=== PATIENT | female | born 1990 | race Caucasian/White ===

== ENCOUNTER 2020-07-26 04:33 | Emergency (ER) | payer MEDICAID ==
[~2020-07-26] VITALS: Ht 160 cm; Wt 50.0 kg
[2020-07-26] MEDS ORDERED: morphine 4 MG/ML inj SYRINge IV ONE (04:50)
[2020-07-26] MEDS ORDERED: normal saline 1000ml 1,000 ML IV ONE (04:55)
[2020-07-26 05:05] LABS: BASOPHILS # (AUTO) 0.1 X10'3 (0-0.2); BASOPHILS % (AUTO) 0.8 % (0-1); EOSINOPHILS # (AUTO) 0.3 X10'3 (0-0.9); EOSINOPHILS % (AUTO) 3.7 % (0-6); HEMATOCRIT 39.8 % (35.0-45.0); LYMPHOCYTES # (AUTO) 3.8 X10'3 (1.1-4.8); LYMPHOCYTES % (AUTO) 50.2 % (21-51); MEAN CORPUSCULAR HEMOGLOBIN 26.2 PG (27.0-31.0); MEAN CORPUSCULAR HGB CONC 32.7 g/dL (33.0-36.5); MEAN CORPUSCULAR VOLUME 80.1 FL (78-98); MEAN PLATELET VOLUME 8.4 FL (7.4-10.4); MONOCYTES # (AUTO) 0.5 X10'3 (0-0.9); MONOCYTES % (AUTO) 6.1 % (2-12); NEUTROPHILS % (AUTO) 39.2 % (42-75); PLATELET COUNT 180 X10'3 (140-440); RED BLOOD COUNT 4.97 X10'6 (4.20-5.60); RED CELL DISTRIBUTION WIDTH 13.4 % (11.5-14.5); WHITE BLOOD COUNT 7.5 X10'3 (4.5-11.0)
[2020-07-26 05:30] LABS: ALANINE AMINOTRANSFERASE 18 U/L (12-78); ALBUMIN 3.9 G/DL (3.4-5.0); ALBUMIN/GLOBULIN RATIO 1.3 (1.1-1.5); ALKALINE PHOSPHATASE 49 IU/L (46-116); ANION GAP 12 (8-16); ASPARTATE AMINO TRANSFERASE 10 U/L (10-37); BILIRUBIN,TOTAL 0.5 MG/DL (0.1-1.0); BLOOD UREA NITROGEN 18 MG/DL (7-18); BUN/CREATININE RATIO 22.8 (6.6-38.0); CALCIUM 8.9 MG/DL (8.5-10.1); CHLORIDE 100 MMOL/L (99-107); CREATININE 0.79 MG/DL (0.40-0.90); GLUCOSE 115 MG/DL (70-104); POTASSIUM 3.5 MMOL/L (3.5-5.1); SODIUM 138 MMOL/L (135-145); TOTAL CARBON DIOXIDE 25.7 MMOL/L (24-32); TOTAL PROTEIN 6.9 G/DL (6.4-8.2); eGFR 87 ML/MIN
--- NOTE | 2020-07-26 06:00 | NUR ---
US at bedside
[2020-07-26 06:23] LABS: CLARITY,URINE CLEAR (Clear); COLOR,URINE YELLOW (Yellow); GLUCOSE, URINE NEGATIVE (Neg); KETONES,URINE NEGATIVE (Neg); LEUKOCYTE ESTERASE ,URINE NEGATIVE (Neg); NITRITES, URINE NEGATIVE (Neg); OCCULT BLOOD,URINE NEGATIVE (Neg); PH,URINE 6.5 (4.8-8.0); PROTEIN,URINE NEGATIVE (Neg); UROBILINOGEN,URINE 0.2 E.U/dL (0.2-1.0)
[2020-07-26 06:24] LABS: UA COLLECTION TYPE CLN CATCH MIDSTREAM
[2020-07-26 06:29] VITALS: BP 112/64
[2020-07-26 06:31] LABS: URINE HCG NEGATIVE (NEG)
== END 2020-07-26 07:01 | disposition home or self-care (01) ==
LOC: ER 04:33
DX: R10.32 Left lower quadrant pain (principal); R11.0 Nausea; R42 Dizziness and giddiness
CPT/HCPCS: 36415; 76856; 80053; 81003; 81025; 85025; 93976; 96361; 96374; 99284; J2270; J7030

== ENCOUNTER 2020-08-13 21:25 | Emergency (ER) | payer MEDICAID ==
[~2020-08-13] VITALS: Ht 160 cm; Wt 48.0 kg
--- NOTE | 2020-08-13 21:40 | NUR ---
Patient brought back from triage to bed 23. Patient care assumed by this nurse.
--- NOTE | 2020-08-13 23:03 | NUR ---
This patient is awake and well oriented. Thought is linear. Patient complains of many recent stressors. Thoughts of S/I, patient had a knife out at home, thoughts of cutting wrist with it. A friend interrupted her. The friend drove patient to the ED. Patient states much stress over past three days. She had taken some xanax at home to self medicate. Patient states relationship problems with her boyfriend, the patient then overdosed on heroin, the patient gave him narcan with success. Other stressors are job loss. Patient states she has had fleeting thoughts of S/I but didn't really want to .
[2020-08-13] MEDS ORDERED: NO HOME MEDS (23:11)
--- NOTE | 2020-08-13 23:31 | NUR ---
Patient sleeping quietly, awaiting MD. PMH: Anxiety, PTSD. In direct view from nurses station.
--- NOTE | 2020-08-14 00:28 | NUR ---
Patilent sleeping quietly, in view from nurses station. W/D, good color.
[2020-08-14 01:34] LABS: URINE AMPHETAMINE SCREEN NEGATIVE (Neg); URINE BARBITUATE SCREEN NEGATIVE (Neg); URINE BENZODIAZEPINES SCREEN NEGATIVE (Neg); URINE CANNABINOID SCREEN POSITIVE (Neg); URINE COCAINE SCREEN NEGATIVE (Neg); URINE METHADONE SCREEN NEGATIVE (Neg); URINE OPIATE SCREEN NEGATIVE (Neg); URINE PHENCYCLIDINE SCREEN NEGATIVE (Neg)
[2020-08-14 01:39] LABS: ALANINE AMINOTRANSFERASE 21 U/L (12-78); ALBUMIN 4.3 G/DL (3.4-5.0); ALBUMIN/GLOBULIN RATIO 1.3 (1.1-1.5); ALKALINE PHOSPHATASE 50 IU/L (46-116); ANION GAP 9 (8-16); ASPARTATE AMINO TRANSFERASE 14 U/L (10-37); BILIRUBIN,TOTAL 0.4 MG/DL (0.1-1.0); BLOOD UREA NITROGEN 10 MG/DL (7-18); CHLORIDE 108 MMOL/L (99-107); CREATININE 0.77 MG/DL (0.40-0.90); ETHANOL < 0.010 GM/DL (0.0-0.010); GLUCOSE 99 MG/DL (70-104); POTASSIUM 3.6 MMOL/L (3.5-5.1); SODIUM 144 MMOL/L (135-145); TOTAL CARBON DIOXIDE 27.3 MMOL/L (24-32); TOTAL PROTEIN 7.6 G/DL (6.4-8.2); eGFR 90 ML/MIN
[2020-08-14 02:00] LABS: URINE HCG NEGATIVE (NEG)
[2020-08-14 02:54] LABS: BASOPHILS % (AUTO) 0.6 % (0-1); EOSINOPHILS # (AUTO) 0.2 X10'3 (0-0.9); EOSINOPHILS % (AUTO) 2.4 % (0-6); HEMATOCRIT 39.3 % (35.0-45.0); HEMOGLOBIN 13.1 g/dl (12.0-16.0); LYMPHOCYTES # (AUTO) 2.7 X10'3 (1.1-4.8); LYMPHOCYTES % (AUTO) 42.6 % (21-51); MEAN CORPUSCULAR HEMOGLOBIN 26.2 PG (27.0-31.0); MEAN CORPUSCULAR HGB CONC 33.3 g/dL (33.0-36.5); MEAN CORPUSCULAR VOLUME 78.9 FL (78-98); MEAN PLATELET VOLUME 8.5 FL (7.4-10.4); MONOCYTES # (AUTO) 0.3 X10'3 (0-0.9); MONOCYTES % (AUTO) 5.2 % (2-12); NEUTROPHILS # (AUTO) 3.1 X10'3 (1.8-7.7); NEUTROPHILS % (AUTO) 49.2 % (42-75); PLATELET COUNT 206 X10'3 (140-440); RED BLOOD COUNT 4.99 X10'6 (4.20-5.60); WHITE BLOOD COUNT 6.3 X10'3 (4.5-11.0)
--- NOTE | 2020-08-14 03:44 | NUR ---
Patient sleeps quietly in a mid fowlers position. No distress. W/D, good color.
--- NOTE | 2020-08-14 04:57 | NUR ---
Patient sleeping low fowlers position on her left side.
--- NOTE | 2020-08-14 06:51 | NUR ---
Patient moved to bed 8 in main ER. Report to day RN. Patient is well oriented and cooperative. No distress.
--- NOTE | 2020-08-14 06:58 | NUR ---
Patient received on a hospital bed awake,pleasant and cooperative.We will monitor.
--- NOTE | 2020-08-14 07:09 | NUR ---
PACKET SENT TO [facility]
--- NOTE | 2020-08-14 07:47 | NUR ---
patient asleep at this time,left beard position,we will monitor.
--- NOTE | 2020-08-14 08:54 | NUR ---
[facility][1] at bedside.
[2020-08-14 10:00] VITALS: BP 103/74
== END 2020-08-14 10:02 | disposition home or self-care (01) ==
LOC: ER 21:25
DX: R45.851 Suicidal ideations (principal); Z20.822 Contact with and (suspected) exposure to COVID-19; F12.90 Cannabis use, unspecified, uncomplicated
CPT/HCPCS: 36415; 80053; 80305; 80320; 81025; 85025; 87426; 99285

== ENCOUNTER 2020-10-04 14:04 | Emergency (ER) | payer MEDICAID ==
[~2020-10-04] VITALS: Ht 160 cm; Wt 50.0 kg
[~2020-10-04 14:04] MED LIST: NO HOME MEDS
[2020-10-04 17:13] LABS: BASOPHILS # (AUTO) 0.1 X10'3 (0-0.2); EOSINOPHILS # (AUTO) 0.1 X10'3 (0-0.9); EOSINOPHILS % (AUTO) 0.7 % (0-6); HEMATOCRIT 41.7 % (35.0-45.0); HEMOGLOBIN 13.9 g/dl (12.0-16.0); LYMPHOCYTES # (AUTO) 1.5 X10'3 (1.1-4.8); MEAN CORPUSCULAR HEMOGLOBIN 26.4 PG (27.0-31.0); MEAN CORPUSCULAR HGB CONC 33.4 g/dL (33.0-36.5); MEAN CORPUSCULAR VOLUME 79.1 FL (78-98); MEAN PLATELET VOLUME 8.6 FL (7.4-10.4); MONOCYTES # (AUTO) 0.4 X10'3 (0-0.9); MONOCYTES % (AUTO) 6.1 % (2-12); NEUTROPHILS # (AUTO) 5.2 X10'3 (1.8-7.7); NEUTROPHILS % (AUTO) 72.2 % (42-75); PLATELET COUNT 171 X10'3 (140-440); RED BLOOD COUNT 5.27 X10'6 (4.20-5.60); RED CELL DISTRIBUTION WIDTH 12.6 % (11.5-14.5); WHITE BLOOD COUNT 7.3 X10'3 (4.5-11.0)
[2020-10-04 17:30] LABS: ALANINE AMINOTRANSFERASE 16 U/L (12-78); ALBUMIN 4.2 G/DL (3.4-5.0); ALBUMIN/GLOBULIN RATIO 1.2 (1.1-1.5); ALKALINE PHOSPHATASE 40 IU/L (46-116); ANION GAP 16 (8-16); ASPARTATE AMINO TRANSFERASE 11 U/L (10-37); BILIRUBIN,TOTAL 0.7 MG/DL (0.1-1.0); BLOOD UREA NITROGEN 10 MG/DL (7-18); BUN/CREATININE RATIO 16.9 (6.6-38.0); CALCIUM 9.2 MG/DL (8.5-10.1); CHLORIDE 101 MMOL/L (99-107); CREATININE 0.59 MG/DL (0.40-0.90); GLUCOSE 72 MG/DL (70-104); POTASSIUM 4.2 MMOL/L (3.5-5.1); SODIUM 138 MMOL/L (135-145); TOTAL CARBON DIOXIDE 21.4 MMOL/L (24-32); TOTAL PROTEIN 7.7 G/DL (6.4-8.2); eGFR > 90 ML/MIN
[2020-10-04 18:29] LABS: CLARITY,URINE CLOUDY (Clear); COLOR,URINE YELLOW (Yellow); GLUCOSE, URINE NEGATIVE (Neg); KETONES,URINE >=80 mg/dl (Neg); LEUKOCYTE ESTERASE ,URINE NEGATIVE (Neg); NITRITES, URINE NEGATIVE (Neg); OCCULT BLOOD,URINE NEGATIVE (Neg); PH,URINE 5.5 (4.8-8.0); PROTEIN,URINE TRACE mg/dl (Neg); UROBILINOGEN,URINE 0.2 E.U/dL (0.2-1.0)
[2020-10-04 18:30] LABS: UA COLLECTION TYPE CLN CATCH MIDSTREAM
[2020-10-04 18:34] LABS: MUCUS STRANDS FEW /LPF (Neg); SQUAMOUS EPITHELIAL CELL,UR MANY /LPF (FEW)
[2020-10-04 18:35] LABS: BACTERIA,URINE 1+ /HPF (Neg)
[2020-10-04 18:36] LABS: RBC,URINE 0-2 /HPF (0-2)
[2020-10-04 19:02] LABS: URINE HCG POSITIVE (NEG)
--- NOTE | 2020-10-04 19:02 | NUR ---
PT HAS HISTORY OF HYPEREMISIS WITH PRIOR PREGNANCIES.
[2020-10-04] MEDS ORDERED: normal saline 1000ml 1,000 ML IV ONE (20:00)
[2020-10-04] MEDS ORDERED: diphenhydrAMINE 50 mg/ml inj IV ONE (20:00)
[2020-10-04] MEDS ORDERED: DOXY1TAB3 PO (20:50)
[2020-10-04] MEDS ORDERED: CEPH-585 PO (21:31)
[2020-10-04 22:03] VITALS: BP 104/64
== END 2020-10-04 22:05 | disposition home or self-care (01) ==
LOC: ER 14:05
DX: O21.0 Mild hyperemesis gravidarum (principal); F12.10 Cannabis abuse, uncomplicated
CPT/HCPCS: 36415; 80053; 81001; 81025; 85025; 96361; 96374; 99283; J1200; J7030

== ENCOUNTER 2021-01-27 03:54 | Emergency (ER) | payer MEDICAID ==
[~2021-01-27] VITALS: Ht 160 cm; Wt 65.0 kg
[~2021-01-27 03:54] MED LIST changes: +CEPH-585 PO; +DOXY1TAB3 PO
[2021-01-27] MEDS ORDERED: acetaminophen 1,000mg/100ml IV 100 ML IV ONE (04:05)
[2021-01-27] MEDS ORDERED: normal saline 1000ml 1,000 ML IV ONE (04:10)
[2021-01-27] MEDS ORDERED: metoclopramide 5 mg/ml inj IV ONE (04:10)
[2021-01-27] MEDS ORDERED: diphenhydrAMINE 50 mg/ml inj IV ONE (04:10)
[2021-01-27 04:42] LABS: BASOPHILS # (AUTO) 0.1 X10'3 (0-0.2); BASOPHILS % (AUTO) 0.5 % (0-1); EOSINOPHILS # (AUTO) 0.1 X10'3 (0-0.9); EOSINOPHILS % (AUTO) 1.2 % (0-6); HEMOGLOBIN 10.8 g/dl (12.0-16.0); LYMPHOCYTES # (AUTO) 1.9 X10'3 (1.1-4.8); MEAN CORPUSCULAR HEMOGLOBIN 27.3 PG (27.0-31.0); MEAN CORPUSCULAR HGB CONC 34.7 g/dL (33.0-36.5); MEAN CORPUSCULAR VOLUME 78.5 FL (78-98); MEAN PLATELET VOLUME 8.3 FL (7.4-10.4); MONOCYTES # (AUTO) 0.5 X10'3 (0-0.9); MONOCYTES % (AUTO) 4.9 % (2-12); NEUTROPHILS # (AUTO) 8.1 X10'3 (1.8-7.7); NEUTROPHILS % (AUTO) 75.4 % (42-75); PLATELET COUNT 157 X10'3 (140-440); RED BLOOD COUNT 3.95 X10'6 (4.20-5.60); RED CELL DISTRIBUTION WIDTH 13.1 % (11.5-14.5); WHITE BLOOD COUNT 10.8 X10'3 (4.5-11.0)
[2021-01-27 04:43] VITALS: BP 116/64
[2021-01-27 04:52] LABS: CLARITY,URINE CLOUDY (Clear); COLOR,URINE YELLOW (Yellow); GLUCOSE, URINE NEGATIVE (Neg); KETONES,URINE NEGATIVE (Neg); LEUKOCYTE ESTERASE ,URINE LARGE (Neg); NITRITES, URINE NEGATIVE (Neg); OCCULT BLOOD,URINE LARGE (Neg); PH,URINE 6.5 (4.8-8.0); PROTEIN,URINE 100 mg/dl (Neg); UROBILINOGEN,URINE 0.2 E.U/dL (0.2-1.0)
[2021-01-27 04:53] LABS: UA COLLECTION TYPE CLN CATCH MIDSTREAM
[2021-01-27 04:55] LABS: ALANINE AMINOTRANSFERASE 15 U/L (12-78); ALBUMIN 2.8 G/DL (3.4-5.0); ALBUMIN/GLOBULIN RATIO 0.8 (1.1-1.5); ALKALINE PHOSPHATASE 71 IU/L (46-116); ANION GAP 11 (8-16); ASPARTATE AMINO TRANSFERASE 10 U/L (10-37); BILIRUBIN,TOTAL 0.2 MG/DL (0.1-1.0); BLOOD UREA NITROGEN 9 MG/DL (7-18); BUN/CREATININE RATIO 16.7 (6.6-38.0); CALCIUM 8.7 MG/DL (8.5-10.1); CHLORIDE 104 MMOL/L (99-107); CREATININE 0.54 MG/DL (0.40-0.90); GLUCOSE 95 MG/DL (70-104); POTASSIUM 3.5 MMOL/L (3.5-5.1); SODIUM 139 MMOL/L (135-145); TOTAL PROTEIN 6.3 G/DL (6.4-8.2); eGFR > 90 ML/MIN
[2021-01-27 05:00] LABS: BACTERIA,URINE 2+ /HPF (Neg); SQUAMOUS EPITHELIAL CELL,UR FEW /LPF (FEW); WBC,URINE TNTC /HPF (0-4)
[2021-01-27] MEDS ORDERED: CefTRIAXone 2gm/D5W 50ml BAG 50 ML IV ONE (05:05)
[2021-01-27] MEDS ORDERED: CEPH-585 PO (05:24)
== END 2021-01-27 06:35 | disposition home or self-care (01) ==
LOC: ER 03:55
DX: O26.92 Pregnancy related conditions, unspecified, second trimester (principal); N39.0 Urinary tract infection, site not specified; M54.89 Other dorsalgia; R35.0 Frequency of micturition; R30.9 Painful micturition, unspecified; F12.90 Cannabis use, unspecified, uncomplicated; Z3A.25 25 weeks gestation of pregnancy; Z79.2 Long term (current) use of antibiotics; Z79.899 Other long term (current) drug therapy
CPT/HCPCS: 36415; 80053; 81001; 85025; 87088; 96365; 96375; 99284; J0131; J0696; J1200; J2765; J7030